=== PATIENT | male | born 1995 | race Caucasian/White ===

== ENCOUNTER → 2017-02-09 | Outpatient (CLI) | payer MEDICAID ==
--- NOTE | 2017-02-09 13:17 | RADIOLOGY REPORT (SQ) ---
EXAM DESCRIPTION: SCOLIOSIS SERIES COMPLETED DATE/TIME: 02/09/2017 12:00 pm REASON FOR STUDY: ENCOUNTER FOR SCREENING FOR OTHER MUSCULOSKELETAL DISORDER Z13.828 ENCOUNTER FOR SCREENING FOR OTHER MUSCULOSKELETAL DI COMPARISON: None. NUMBER OF VIEWS: One view. TECHNIQUE: Standing AP exam of the thoracolumbar spine with measurement of the WALLACE angles. LIMITATIONS: None. FINDINGS: 12 rib-bearing vertebra, 6 lumbar non rib-bearing vertebra. No significant curvature in the thoracic spine. Transitional segment at the thoracolumbar junction. From the top of L1 to the bottom of L4, there is 12 of convex leftward lumbar curvature. IMPRESSION: 12 of convex leftward lumbar curvature. Transitional anatomy with 6 lumbar vertebral bodies, transitional segment is labeled at the thoracolu mbar junction TECHNICAL DOCUMENTATION: JOB ID: [id number] [employer]- All Rights Reserved
== END ==
LOC: OD 11:39
PROVIDERS: ATTEND Family Medicine
DX: Z13.828 Encounter for screening for other musculoskeletal disorder (principal)
CPT/HCPCS: 72082